=== PATIENT | female | born 1925 | race Caucasian/White ===

== ENCOUNTER 2016-07-08 22:48 | Inpatient (IN) | payer MEDICARE, BC ==
[2016-07-08] MEDS ORDERED: SODIUM CHLORIDE 0.9% 1,000 ML IV STA (22:52)
--- NOTE | 2016-07-08 22:53 | ED ---
General Adult HPI - General Stated complaint: Fall Time Seen by Provider: 07/08/16 22:52 Source: RN notes reviewed, old records reviewed - History of Present Illness Initial comments: This is an 89-year-old female the ER status post fall. Patient's fall out of bed, didn't hit her head. On blood thinners. Patient unresponsive, patient unknown down time. Transferred to emergency room by EMS, history obtained by EMS - Related Data Home Medications Medication Instructions Recorded Confirmed Aspirin 81 mg PO DAILY 08/17/13 12/19/13 Gluc HCl/[facility]/Mv/Min Aa/Hb 162 1 each PO DAILY 08/17/13 12/19/13 [Glucosamine-Chondroitin Caplet] Losartan [Cozaar] 25 mg PO DAILY 08/17/13 12/19/13 Lovastatin [Mevacor] 10 mg PO HS 08/17/13 12/19/13 metFORMIN HCL [Glucophage] 1,000 mg PO HS 08/17/13 12/19/13 Allergies Allergy/AdvReac Type Severity Reaction Status Date / Time alendronate sodium Allergy Unknown Verified 12/19/13 13:21 [From Fosamax] amoxicillin [Amoxicillin] Allergy Unknown Verified 12/19/13 13:21 hydrocortisone Allergy Unknown Verified 12/19/13 13:21 pravastatin Allergy Unknown Verified 12/19/13 13:21 Sulfa (Sulfonamide Allergy Unknown Verified 12/19/13 13:21 Antibiotics) sulfamethoxazole Allergy Unknown Verified 12/19/13 13:21 [From Septra] tioconazole [From Monistat 1] Allergy Unknown Verified 12/19/13 13:21 trimethoprim [From Septra] Allergy Unknown Verified 12/19/13 13:21 Review of Systems ROS Statement: Those systems with pertinent positive or pertinent negative responses have been documented in the HPI. ROS Other: All systems not noted in ROS Statement are negative. Past Medical History Past Medical History: Diabetes Mellitus, Hyperlipidemia, Hypertension History of Any Multi-Drug Resistant Organisms: None Reported Past Surgical History: No Surgical Hx Reported Past Psychological History: No Psychological Hx Reported Smoking Status: Former smoker Past Alcohol Use History: None Reported Past Drug Use History: None Reported General Exam Limitations: altered mental status General appearance: alert, obtunded Head exam: Present: atraumatic, normocephalic, normal inspection Eye exam: Present: normal appearance, PERRL, EOMI, other (Patient's pupils are fixed and dilated). Absent: scleral icterus, conjunctival injection, periorbital swelling ENT exam: Present: normal exam, mucous membranes moist Neck exam: Present: normal inspection. Absent: tenderness, meningismus, lymphadenopathy Respiratory exam: Present: normal lung sounds bilaterally. Absent: respiratory distress, wheezes, rales, rhonchi, stridor Cardiovascular Exam: Present: regular rate, normal rhythm, normal heart sounds. Absent: systolic murmur, diastolic murmur, rubs, gallop, clicks GI/Abdominal exam: Present: soft, normal bowel sounds. Absent: distended, tenderness, guarding, rebound, rigid Extremities exam: Present: normal inspection, full ROM, normal capillary refill. Absent: tenderness, pedal edema, joint swelling, calf tenderness Back exam: Present: normal inspection Neurological exam: Present: alert, oriented X3, CN II-XII intact Psychiatric exam: Present: normal affect, normal mood Skin exam: Present: warm, dry, intact, normal color. Absent: rash Course Vital Signs 07/08/16 07/09/16 22:50 00:06 Pulse Rate 63 62 Respiratory 16 16 Rate Blood Pressure 184/89 178/74 O2 Sat by Pulse 99 Oximetry - Reevaluation(s) Reevaluation #1: 07/09/16 00:48 Spoke with radiology regarding Reevaluation #2: 07/09/16 00:48 Spoke with patient's family regarding findings. Questions answered Reevaluation #3: 07/09/16 01:05 Patient is a DO NOT RESUSCITATE, again in speaking with family would not like any further care taken Medical Decision Making - Lab Data Result diagrams: 07/08/16 23:33 07/08/16 23:33 Lab Results 07/08/16 07/08/16 07/08/16 Range/Units 23:33 23:33 23:33 WBC 25.2 H* (3.8-10.6) k/uL RBC 3.92 (3.80-5.40) m/uL Hgb 10.9 L (11.4-16.0) gm/dL Hct 34.0 (34.0-46.0) % MCV 86.8 (80.0-100.0) fL MCH 27.8 (25.0-35.0) pg MCHC 32.0 (31.0-37.0) g/dL RDW 13.6 (11.5-15.5) % Plt Count 407 (150-450) k/uL Neutrophils % 74 % Lymphocytes % 18 % Monocytes % 5 % Eosinophils % 1 % Basophils % 0 % Neutrophils # 18.7 H (1.3-7.7) k/uL Lymphocytes # 4.7 (1.0-4.8) k/uL Monocytes # 1.3 H (0-1.0) k/uL Eosinophils # 0.3 (0-0.7) k/uL Basophils # 0.1 (0-0.2) k/uL Hypochromasia Slight PT (9.0-12.0) sec INR (<1.1) APTT (22.0-30.0) sec Sodium 143 (137-145) mmol/L Potassium 3.3 L (3.5-5.1) mmol/L Chloride 113 H (98-107) mmol/L Carbon Dioxide 21 L (22-30) mmol/L Anion Gap 9 mmol/L BUN 14 (7-17) mg/dL Creatinine 0.70 (0.52-1.04) mg/dL Est GFR (MDRD) Af Amer >60 (>60 ml/min/1.73 sqM) Est GFR (MDRD) Non-Af >60 (>60 ml/min/1.73 sqM) Glucose 133 H (74-99) mg/dL Calcium 8.2 L (8.4-10.2) mg/dL Phosphorus 3.0 (2.5-4.5) mg/dL Magnesium 1.5 L (1.6-2.3) mg/dL Total Bilirubin 0.8 (0.2-1.3) mg/dL AST 20 (14-36) U/L ALT 27 (9-52) U/L Alkaline Phosphatase 109 (38-126) U/L Total Creatine Kinase <20 L (30-135) U/L CK-MB (CK-2) 0.2 (0.0-2.4) ng/mL CK-MB (CK-2) Rel Index 0.0 Troponin I <0.012 (0.000-0.034) ng/mL Total Protein 5.3 L (6.3-8.2) g/dL Albumin 2.7 L (3.5-5.0) g/dL 07/08/16 Range/Units 23:33 WBC (3.8-10.6) k/uL RBC (3.80-5.40) m/uL Hgb (11.4-16.0) gm/dL Hct (34.0-46.0) % MCV (80.0-100.0) fL MCH (25.0-35.0) pg MCHC (31.0-37.0) g/dL RDW (11.5-15.5) % Plt Count (150-450) k/uL Neutrophils % % Lymphocytes % % Monocytes % % Eosinophils % % Basophils % % Neutrophils # (1.3-7.7) k/uL Lymphocytes # (1.0-4.8) k/uL Monocytes # (0-1.0) k/uL Eosinophils # (0-0.7) k/uL Basophils # (0-0.2) k/uL Hypochromasia PT 11.7 (9.0-12.0) sec INR 1.2 (<1.1) APTT 21.2 L (22.0-30.0) sec Sodium (137-145) mmol/L Potassium (3.5-5.1) mmol/L Chloride (98-107) mmol/L Carbon Dioxide (22-30) mmol/L Anion Gap mmol/L BUN (7-17) mg/dL Creatinine (0.52-1.04) mg/dL Est GFR (MDRD) Af Amer (>60 ml/min/1.73 sqM) Est GFR (MDRD) Non-Af (>60 ml/min/1.73 sqM) Glucose (74-99) mg/dL Calcium (8.4-10.2) mg/dL Phosphorus (2.5-4.5) mg/dL Magnesium (1.6-2.3) mg/dL Total Bilirubin (0.2-1.3) mg/dL AST (14-36) U/L ALT (9-52) U/L Alkaline Phosphatase (38-126) U/L Total Creatine Kinase (30-135) U/L CK-MB (CK-2) (0.0-2.4) ng/mL CK-MB (CK-2) Rel Index Troponin I (0.000-0.034) ng/mL Total Protein (6.3-8.2) g/dL Albumin (3.5-5.0) g/dL - Radiology Data Radiology results: report reviewed (CT brain and C-spine shows positive intracranial hemorrhage with midline shift), image reviewed Disposition Clinical Impression: Fall, Intracranial hemorrhage Disposition: ADMITTED IP TO THIS [facility] Condition: Good Referrals: Quintin Valenzuela MD [STAFF PHYSICIAN] - 1-2 days
[2016-07-08] MEDS ORDERED: ONDANSETRON 4 MG/2 ML VIAL IVP STA (22:59)
[2016-07-08 23:43] LABS: Hypochromasia Slight; RDW 13.6 % (11.5-15.5)
[2016-07-08 23:51] LABS: INR 1.2 (<1.1); Prothrombin Time 11.7 sec (9.0-12.0)
[2016-07-08 23:57] LABS: ALT 27 U/L (9-52); AST 20 U/L (14-36); Alkaline Phosphatase 109 U/L (38-126); Anion Gap 9 mmol/L; Blood Urea Nitrogen 14 mg/dL (7-17); Calcium 8.2 mg/dL (8.4-10.2); Carbon Dioxide 21 mmol/L (22-30); Chloride 113 mmol/L (98-107); Glucose 133 mg/dL (74-99); Magnesium 1.5 mg/dL (1.6-2.3); Non-African American GFR(MDRD) >60 (>60 ml/min/1.73 sqM); Potassium 3.3 mmol/L (3.5-5.1); Sodium 143 mmol/L (137-145); Total Bilirubin 0.8 mg/dL (0.2-1.3); Total Protein 5.3 g/dL (6.3-8.2)
[2016-07-09 00:09] LABS: Basophils # (A) 0.1 k/uL (0-0.2); Basophils % (A) 0 %; CH 27.5; CHCM 31.7; Eosinophils # (A) 0.3 k/uL (0-0.7); Eosinophils % (A) 1 %; HDW 2.88; HGB 10.9 gm/dL (11.4-16.0); Luc # (Auto) 0.29; Luc % (Auto) 1; Lymphocytes # (A) 4.7 k/uL (1.0-4.8); Lymphocytes % (A) 18 %; MCH 27.8 pg (25.0-35.0); MCV 86.8 fL (80.0-100.0); Mean Platelet Volume 7.3; Monocytes # (A) 1.3 k/uL (0-1.0); Monocytes % (A) 5 %; Neutrophils # (A) 18.7 k/uL (1.3-7.7); Neutrophils % (A) 74 %; RBC 3.92 m/uL (3.80-5.40); WBC (Perox) 27.06
[2016-07-09 00:10] LABS: Creatine Kinase <20 U/L (30-135)
[2016-07-09 00:11] LABS: Partial Thromboplastin Time 21.2 sec (22.0-30.0)
[2016-07-09 00:14] LABS: WBC 25.2 k/uL (3.8-10.6)
[2016-07-09 00:22] LABS: Creatine Kinase MB 0.2 ng/mL (0.0-2.4); Troponin I <0.012 ng/mL (0.000-0.034)
--- NOTE | 2016-07-09 00:22 | CT ---
EXAM: CT Head Without Intravenous Contrast CLINICAL HISTORY: Reason: Pain TECHNIQUE: Axial computed tomography images of the head/brain without intravenous contrast. CTDI is 57.40 mGy and DLP is 1081.60 mGy-cm. This CT exam was performed using one or more of the following dose reduction techniques: automated exposure control, adjustment of the mA and/or kV according to patient size, and/or use of iterative reconstruction technique. COMPARISON: 12/19/[address] FINDINGS: Brain: Large amount of acute intracranial hemorrhage, measuring up to 11.6 x 5.8 cm on series 3 image 39. There is both intra-and extra-axial hemorrhage including intraparenchymal, with intraventricular extension. There is marked associated surrounding edema and mass effect, with 2.1 cm left to right subfalcine shift on axial image 26, and effacement of the basilar cisterns suggesting associated transtentorial herniation. There is entrapment of the right lateral ventricle. There is again a background of atrophy and presumed chronic small vessel ischemic change present. Ventricles: Seen above. Bones/joints: No acute displaced fracture. Soft tissues: Left lateral frontal scalp soft tissue hematoma. Vasculature: Intracranial atherosclerosis is again present. Sinuses: Small amount of frothy material seen within the right sphenoid sinus. Mastoid air cells: Unremarkable as visualized. No mastoid effusion. IMPRESSION: Extensive acute intra-cranial hemorrhage with significant surrounding edema, mass effect, and associated shift, as above. This was promptly called to, and discussed with the ER clinician Dr. Ellsworth at time of dictation, 0014 hours Eastern standard time. EXAM: CT Cervical Spine Without Intravenous Contrast CLINICAL HISTORY: Reason: Pain TECHNIQUE: Axial computed tomography images of the cervical spine without intravenous contrast. CTDI is 13.50 mGy and DLP is 313.40 mGy-cm. This CT exam was performed using one or more of the following dose reduction techniques: automated exposure control, adjustment of the mA and/or kV according to patient size, and/or use of iterative reconstruction technique. COMPARISON: No relevant prior studies available. FINDINGS: Vertebrae: The bones are osteopenic and there are multilevel degenerative changes present. No acute fracture is seen. There is slight anterior loss of height at T1, which appears chronic, and which contains an ovoid 10-11 mm sclerotic focus within. Discs/spinal canal/neural foramina: Degenerative changes greatest at C4-5 through C6-7 including associated foraminal stenosis and mild reduction of central canal volume. Alignment appears to be maintained. Soft tissues: Unremarkable. Thyroid: Heterogeneous thyroid gland includes 6 mm right lobe low- density nodule. Esophagus: There is an air-fluid level in the proximal to mid intrathoracic esophagus, where included. Lung apices: Unremarkable as visualized. IMPRESSION: 1. No acute osseous abnormality is seen, as above. Clinical clearance of the cervical spine is still recommended. 2. Additional findings includes indeterminate T1 sclerotic lesion, statistically a bone island particularly in the absence of a known primary neoplasm, intrathoracic esophageal air-fluid level, and 6 mm right thyroid lobe nodule. [employer] 07/09/16 00:14 Call Doctor Regarding Intracranial Hemorrhage, called Dr. Ellsworth on 07/09 00:13 (-04:00)
--- NOTE | 2016-07-09 00:25 | CT ---
EXAM: CT Maxillofacial Without Intravenous Contrast CLINICAL HISTORY: Reason: Pain TECHNIQUE: Axial computed tomography images of the face without intravenous contrast. CTDI is 30.60 mGy and DLP is 605.90 mGy-cm. This CT exam was performed using one or more of the following dose reduction techniques: automated exposure control, adjustment of the mA and/or kV according to patient size, and/or use of iterative reconstruction technique. COMPARISON: Current head CT, dictated separately. FINDINGS: Bones/joints: Right greater than left TMJ DJD is noted. No acute fracture is seen. Soft tissues: Partially redemonstrated extensive intracranial hemorrhage with associated mass effect and shift, and left lateral scalp soft tissue hematoma, as described on separate head CT. Orbits: Unremarkable. Sinuses: There is a small amount of frothy material within the right sphenoid sinus. The paranasal sinuses are otherwise clear. No air-fluid levels. IMPRESSION: No acute facial bone fracture is seen, as above.
[2016-07-09] MEDS ORDERED: SODIUM CHLORIDE 0.9% 1,000 ML IV ONE (01:06)
--- NOTE | 2016-07-09 01:22 | XR ---
EXAM: XR Pelvis, 1 or 2 Views CLINICAL HISTORY: Reason: Pain TECHNIQUE: Single portable frontal view of the pelvis. COMPARISON: No relevant prior studies available. FINDINGS: Bones/joints: The bones are osteopenic. No acute displaced fracture or dislocation is seen on this single frontal view. Soft tissues: Multifocal arterial vascular calcifications. Multiple small rounded bilateral pelvic calcifications are indeterminate, statistically phleboliths. Gastrointestinal tract: Moderate to large volume of colonic stool. IMPRESSION: Limited exam, without evidence of acute displaced fracture or hip dislocation seen, as above.
--- NOTE | 2016-07-09 01:23 | XR ---
EXAM: XR Chest, 1 View CLINICAL HISTORY: Reason: Pain TECHNIQUE: Frontal view of the chest. COMPARISON: No relevant prior studies available. FINDINGS: Note that the apices are excluded from the [id number]. Lungs: Thin linear opacity in the retrocardiac region suggesting atelectasis or scarring. The remaining visualized lung varela are clear. Pleural space: Unremarkable. No pneumothorax. Heart: Unremarkable. No cardiomegaly. Mediastinum: Unremarkable. Bones/joints: Osteopenia and mild multilevel degenerative changes. No acute displaced fracture is seen. IMPRESSION: No definite acute intrathoracic abnormality is seen, as above.
[2016-07-09 01:33] VITALS: RESP 14
[2016-07-09 02:04] VITALS: BP 160/68; PULSE 65
== END 2016-07-09 04:28 | disposition expired | DRG 66 ==
LOC: EC 22:48 → 5ONC 07-09 01:07
PROVIDERS: ADMIT Internal Medicine Geriatric Medicine; ATTEND Internal Medicine Geriatric Medicine
DX: I62.9 Nontraumatic intracranial hemorrhage, unspecified (principal); E11.9 Type 2 diabetes mellitus without complications; I10 Essential (primary) hypertension; Z66 Do not resuscitate; Z51.5 Encounter for palliative care; E78.5 Hyperlipidemia, unspecified; Z87.891 Personal history of nicotine dependence; Z79.82 Long term (current) use of aspirin; Z79.84 Long term (current) use of oral hypoglycemic drugs; Z79.899 Other long term (current) drug therapy; W06.XXXA Fall from bed, initial encounter; Z88.1 Allergy status to other antibiotic agents; Z88.2 Allergy status to sulfonamides; Z88.8 Allergy status to other drugs, medicaments and biological substances
CPT/HCPCS: 36415; 70450; 70486; 71010; 72125; 72170; 80053; 82550; 82553; 83735; 84100; 84484; 85025; 85610; 85730; 96374; 99285